=== PATIENT | female | born 1975 | race African-American/Black ===

== ENCOUNTER 2017-10-03 13:05 | Emergency (ER) | payer SELFPAY ==
[~2017-10-03] VITALS: Ht 160 cm; Wt 81.6 kg
[~2017-10-03 13:05] MED LIST: FLUO10CA13 PO; ONDA4TAB10 SL; OXYC-323 PO
[2017-10-03 13:20] VITALS: BP 151/98
[2017-10-03 13:56] LABS: BILIRUBIN,URINE NEG (NEG); CLARITY,URINE HAZY; COLOR,URINE AMBER; GLUCOSE,URINE NEG (NEG)
[2017-10-03 13:57] LABS: BACTERIA,URINE FEW /HPF (0-FEW); NITRITE,URINE NEG (NEG); SQUAMOUS EPITHELIAL CELL,UR MANY /LPF; TRICHOMONAS,URINE PRESENT; UROBILINOGEN,URINE 1 mg/dL (0.2 mg/dL)
[2017-10-03 14:01] LABS: AMPHETAMINE/METHAMPHETAMINE NEG (NEG); BARBITURATES NEG (NEG); BENZODIAZEPINES NEG (NEG); CANNABINOIDS POS (NEG); COCAINE POS (NEG); METHADONE NEG (NEG); OPIATES NEG (NEG); PHENCYCLIDINE NEG (NEG)
[2017-10-03 14:04] LABS: BASO % 1 % (0-3); EOS # 0.1 x10^3/uL (0.0-0.7); EOS % 1 % (0-3); HEMATOCRIT 42.8 % (36.0-47.0); HEMOGLOBIN 14.6 g/dL (12.0-15.5); LYMPH # 2.9 x10^3/uL (1.0-4.8); LYMPH % 39 % (24-48); MEAN CORPUSCULAR HEMOGLOBIN 32 pg (25-35); MEAN CORPUSCULAR HGB CONC 34 g/dL (31-37); MEAN CORPUSCULAR VOLUME 94 fL (79-100); MONO # 0.5 x10^3/uL (0.0-1.1); MONO % 7 % (0-9); NEUT # 3.9 x10^3uL (1.8-7.7); NEUT % 52 % (31-73); PLATELET COUNT 230 x10^3/uL (140-400); RED BLOOD COUNT 4.53 x10^6/uL (3.50-5.40); RED CELL DISTRIBUTION WIDTH 12.9 % (11.5-14.5); WHITE BLOOD COUNT 7.5 x10^3/uL (4.0-11.0)
[2017-10-03 14:10] LABS: PREG TEST PT QUAL NEGATIVE (NEG)
[2017-10-03 14:14] LABS: ALBUMIN 3.8 g/dL (3.4-5.0); CREATININE 0.8 mg/dL (0.6-1.0); GFR 94.3; MAGNESIUM 1.9 mg/dL (1.8-2.4); POTASSIUM 3.5 mmol/L (3.5-5.1); TOTAL BILIRUBIN 1.1 mg/dL (0.2-1.0); TOTAL PROTEIN 7.8 g/dL (6.4-8.2)
--- NOTE | 2017-10-03 14:35 | PHYS DOC ---
Past History Past Medical History: Anxiety, Depression Past Surgical History: Cholecystectomy, , Hysterectomy Smoking: Cigarettes, Less than 1pk/day Alcohol Use: Occasionally Drug Use: Marijuana Adult General Chief Complaint Chief Complaint: SUICDAL IDEATION HPI HPI 42-year-old female patient complaining of vaginal discharge and urinary frequency for the last one week with suprapubic discomfort feeling with radiation of pain to her back. Patient states she did not have new sexual partner and denies concern for STD. Patient is postmenopausal. Patient rated her pain as moderate. Patient states she had history of depression and since this morning she feels she" doesn't want to be there anymore"and wants to be but does not have any suicidal plan. Patient denies history of suicidal attempt or ideation previously or mental hospitalization, hallucination and homicidal ideation. Patient admitted to use daily marijuana and used cocaine 5 days ago. Patient smokes cigarettes. Patient denies fever and chills, nausea and vomiting, focal neuro deficit, chest pain and shortness of breath. Review of Systems Review of Systems Constitutional: Denies fever or chills [] Eyes: Denies change in visual acuity, redness, or eye pain [] HENT: Denies nasal congestion or sore throat [] Respiratory: Denies cough or shortness of breath [] Cardiovascular: No additional information not addressed in HPI [] GI: Reports abdominal pain, nausea, denies vomiting, bloody stools or diarrhea [ ] : Denies dysuria or hematuria , reports vaginal discharge and urinary frequency[] Musculoskeletal: Denies back pain or joint pain [] Integument: Denies rash or skin lesions [] Neurologic: Denies headache, focal weakness or sensory changes [] Endocrine: Denies polydipsia [] All other systems were reviewed and found to be within normal limits, except as documented in this note. Allergies Allergies Allergies Coded Allergies Type Severity Reaction Last Updated Verified hydromorphone Allergy Intermediate nausea 10/06/16 Yes acetaminophen Allergy Unknown 03/02/14 Yes hydrocodone Allergy Unknown 03/02/14 Yes Physical Exam Physical Exam Constitutional: Well developed, well nourished,mild distress, non-toxic appearance, depressed and tearful [] HENT: Normocephalic, atraumatic, bilateral external ears normal, oropharynx moist, no oral exudates, nose normal. [] Eyes: PERRLA, EOMI, conjunctiva normal, no discharge. [] Neck: Normal range of motion, no tenderness, supple, no stridor. [] Cardiovascular:Heart rate regular rhythm, no murmur [] Lungs & Thorax: Bilateral breath sounds clear to auscultation [] Abdomen: Bowel sounds normal, soft, no tenderness, no masses, no pulsatile masses. [] Skin: Warm, dry, no erythema, no rash. [] Back: No tenderness, no CVA tenderness. [] Extremities: No tenderness, no cyanosis, no clubbing, ROM intact, no edema. [] Neurologic: Alert and oriented X 3, normal motor function, normal sensory function, no focal deficits noted. [] Psychologic: Affect normal, judgement normal, mood normal. Patient was not able to tolerate vaginal exam and refused vaginal exam. [] Current Patient Data Lab Results Laboratory Tests Test 10/03/17 13:25 10/03/17 13:44 Urine Collection Type Unknown Urine Color Tanya Urine Clarity Hazy Urine pH 5.5 Urine Specific [place] >=1.030 Urine Protein 100 mg/dl (NEG-TRACE) Urine Glucose (UA) Neg mg/dL (NEG) Urine Ketones (Stick) Trace mg/dL (NEG) Urine Blood Mod (NEG) Urine Nitrite Neg (NEG) Urine Bilirubin Neg (NEG) Urine Urobilinogen Dipstick 1 mg/dL (0.2 mg/dL) Urine Leukocyte Esterase Small (NEG) Urine RBC 3-5 /HPF (0-2) Urine WBC 5-10 /HPF (0-4) Urine Squamous Epithelial Cells Many /LPF Urine Bacteria Few /HPF (0-FEW) Urine Mucus Mod /LPF Urine Trichomonas Present Urine Opiates Screen Neg (NEG) Urine Methadone Screen Neg (NEG) Urine Barbiturates Neg (NEG) Urine Phencyclidine Screen Neg (NEG) Urine Amphetamine/Methamphetamine Neg (NEG) Urine Benzodiazepines Screen Neg (NEG) Urine Cocaine Screen Pos (NEG) Urine Cannabinoids Screen Pos (NEG) Urine Ethyl Alcohol Neg (NEG) White Blood Count 7.5 x10^3/uL (4.0-11.0) Red Blood Count 4.53 x10^6/uL (3.50-5.40) Hemoglobin 14.6 g/dL (12.0-15.5) Hematocrit 42.8 % (36.0-47.0) Mean Corpuscular Volume 94 fL (79-100) Mean Corpuscular Hemoglobin 32 pg (25-35) Mean Corpuscular Hemoglobin Concent 34 g/dL (31-37) Red Cell Distribution Width 12.9 % (11.5-14.5) Platelet Count 230 x10^3/uL (140-400) Neutrophils (%) (Auto) 52 % (31-73) Lymphocytes (%) (Auto) 39 % (24-48) Monocytes (%) (Auto) 7 % (0-9) Eosinophils (%) (Auto) 1 % (0-3) Basophils (%) (Auto) 1 % (0-3) Neutrophils # (Auto) 3.9 x10^3uL (1.8-7.7) Lymphocytes # (Auto) 2.9 x10^3/uL (1.0-4.8) Monocytes # (Auto) 0.5 x10^3/uL (0.0-1.1) Eosinophils # (Auto) 0.1 x10^3/uL (0.0-0.7) Basophils # (Auto) 0.0 x10^3/uL (0.0-0.2) Sodium Level 143 mmol/L (136-145) Potassium Level 3.5 mmol/L (3.5-5.1) Chloride Level 107 mmol/L (98-107) Carbon Dioxide Level 24 mmol/L (21-32) Anion Gap 12 (6-14) Blood Urea Nitrogen 5 mg/dL (7-20) L Creatinine 0.8 mg/dL (0.6-1.0) Estimated GFR (Cockcroft-Gault) 94.3 BUN/Creatinine Ratio 6 (6-20) Glucose Level 92 mg/dL (70-99) Calcium Level 9.0 mg/dL (8.5-10.1) Magnesium Level 1.9 mg/dL (1.8-2.4) Total Bilirubin 1.1 mg/dL (0.2-1.0) H Aspartate Amino Transferase (AST) 13 U/L (15-37) L Alanine Aminotransferase (ALT) 14 U/L (14-59) Alkaline Phosphatase 58 U/L (46-116) Total Protein 7.8 g/dL (6.4-8.2) Albumin 3.8 g/dL (3.4-5.0) Albumin/Globulin Ratio 1.0 (1.0-1.7) Lipase 93 U/L (73-393) Serum Test, Qualitative Negative (NEG) EKG EKG [] Radiology/Procedures Radiology/Procedures [] Course & Med Decision Making Course & Med Decision Making Pertinent Labs studies reviewed. (See chart for details) Evaluation of patient in ER showed 42-year-old female patient with complaining of urinary frequency and pelvic pain and depression and suicidal thought without plan. Patient was not able to tolerate vaginal exam and refused vaginal exam. Patient did not have external vaginal discharge or abnormality. Patient is not sexually active for a long time. Labs showed UTI and positive cocaine and marijuana in UDS. Patient was evaluated by at 1530 and he determined that patient is not harm to herself and can discharge and follow as outpatient with guidance Center. Patient feels comfortable to go home and follow as outpatient. Dragon Disclaimer Dragon Disclaimer This electronic medical record was generated, in whole or in part, using a voice recognition dictation system. Departure Departure: Impression: Primary Impression: Urinary tract infection Additional Impressions: Depressed Suicidal thoughts Pelvic pain Cocaine abuse Marijuana abuse Tobacco abuse Tobacco abuse counseling Disposition: HOME, SELF-CARE (At 1647) Referrals: PCP,NO (PCP) Patient Instructions: Depression, Adult, Pelvic Pain, Female, Substance Abuse- Brief, Urinary Tract Infection Additional Instructions: Follow-up with guidance Center as instructed by psychiatric doctor Quit smoking and abusing drugs Scripts Ciprofloxacin Hcl (CIPRO) 250 Mg Tablet 1 TAB PO BID, #14 TAB Prov: CAROLYN ONTIVEROS MD 10/03/17 Problem Qualifiers CAROLYN ONTIVEROS MD Oct 03, 2017 14:35
[2017-10-03] MEDS ORDERED: CIPR250T30 PO (16:50)
== END 2017-10-03 17:05 | disposition home or self-care (01) ==
LOC: ER 13:05
DX: N39.0 Urinary tract infection, site not specified (principal); R45.851 Suicidal ideations; F32.9 Major depressive disorder, single episode, unspecified; F14.10 Cocaine abuse, uncomplicated; F12.10 Cannabis abuse, uncomplicated; F41.9 Anxiety disorder, unspecified; F17.210 Nicotine dependence, cigarettes, uncomplicated; Z88.5 Allergy status to narcotic agent; Z88.6 Allergy status to analgesic agent
CPT/HCPCS: 36415; 80053; 80307; 81001; 83690; 83735; 84703; 85025; 87086; 99284; G0479

== ENCOUNTER 2020-01-07 15:01 | Emergency (ER) | payer OTHER ==
[~2020-01-07] VITALS: Ht 160 cm; Wt 75.7 kg
[2020-01-07 15:01] VITALS: BP 142/110
[~2020-01-07 15:01] MED LIST changes: +CIPR250T30 PO; -OXYC-323 PO; +OXYC1TAB15 PO
[2020-01-07] MEDS ORDERED: IV NORMAL SALINE 1,000ML 1,000 ML IV SCH (15:29)
[2020-01-07 15:41] LABS: BASO % 1 % (0-3); EOS % 1 % (0-3); HEMATOCRIT 41.6 % (36.0-47.0); HEMOGLOBIN 13.9 g/dL (12.0-15.5); LYMPH # 2.2 x10^3/uL (1.0-4.8); LYMPH % 33 % (24-48); MEAN CORPUSCULAR HEMOGLOBIN 32 pg (25-35); MEAN CORPUSCULAR HGB CONC 33 g/dL (31-37); MEAN CORPUSCULAR VOLUME 97 fL (79-100); MONO # 0.5 x10^3/uL (0.0-1.1); MONO % 7 % (0-9); NEUT % 59 % (31-73); PLATELET COUNT 245 x10^3/uL (140-400); RED BLOOD COUNT 4.31 x10^6/uL (3.50-5.40); RED CELL DISTRIBUTION WIDTH 12.8 % (11.5-14.5); WHITE BLOOD COUNT 6.8 x10^3/uL (4.0-11.0)
[2020-01-07] MEDS ORDERED: ASPIRIN 81 MG TAB.CHEW PO ONE (15:45)
[2020-01-07 15:48] LABS: CALCIUM 9.1 mg/dL (8.5-10.1); CREATININE 0.8 mg/dL (0.6-1.0); GFR 93.4
--- NOTE | 2020-01-07 15:49 | RAD ---
EXAM: AP View of the chest DATE: 01/07/2020 3:29 PM INDICATION: Chest pain COMPARISON: No Prior FINDINGS: The heart is not enlarged. Mediastinal and hilar contours are normal. No focal parenchymal airspace opacity. No pleural effusion or pneumothorax. IMPRESSION: 1. No radiographic evidence for acute cardiopulmonary process. Electronically signed by: Chago Romero MD (01/07/2020 3:46 PM) [id number]
[2020-01-07 16:00] LABS: ALBUMIN 4.1 g/dL (3.4-5.0); ALBUMIN/GLOBULIN RATIO 1.2 (1.0-1.7); MAGNESIUM 1.8 mg/dL (1.8-2.4); TOTAL BILIRUBIN 1.1 mg/dL (0.2-1.0); TOTAL PROTEIN 7.5 g/dL (6.4-8.2)
--- NOTE | 2020-01-07 16:12 | PHYS DOC ---
Past History Past Medical History: Anxiety, Depression Past Surgical History: Cholecystectomy, , Hysterectomy Smoking: Cigarettes, Less than 1pk/day Alcohol Use: Occasionally Drug Use: Cocaine, Marijuana Adult General Chief Complaint Chief Complaint: MULTIPLE COMPLAINTS HPI HPI Patient is a 44-year-old female who presents with complaint of pain on the right side of her back behind her shoulder blade. She describes pain as sharp and stabbing in nature and states that pain is worsened with deep breathing and with movements. She denies any cough or fever. Patient denies any recent injuries. She rates pain as moderate. She states that nothing is improving her pain.[] Review of Systems Review of Systems Constitutional: Denies fever or chills [] Respiratory: Denies cough or shortness of breath [] Cardiovascular: No additional information not addressed in HPI [] GI: Denies abdominal pain, nausea, vomiting or diarrhea [] Musculoskeletal: Complains of right sided mid to upper back pain [] Integument: Denies rash or skin lesions [] All other systems were reviewed and found to be within normal limits, except as documented in this note. Current Medications Current Medications Current Medications Medications (Trade) Dose Ordered Sig/Rox Start Time Stop Time Status Last Admin Dose Admin Aspirin (Children'S Aspirin) 324 mg 1X ONCE 01/07/20 15:45 01/07/20 15:46 DC 01/07/20 15:45 324 MG Sodium Chloride 1,000 ml @ 1,000 mls/hr Q1H 01/07/20 15:29 01/07/20 16:28 01/07/20 15:29 1,000 MLS/HR Allergies Allergies Allergies Coded Allergies Type Severity Reaction Last Updated Verified hydromorphone Allergy Intermediate nausea 10/06/16 Yes acetaminophen Allergy Unknown 03/02/14 Yes hydrocodone Allergy Unknown 03/02/14 Yes Physical Exam Physical Exam Constitutional: Well developed, well nourished, no acute distress, non-toxic appearance. [] HENT: Normocephalic, atraumatic, bilateral external ears normal, oropharynx moist, no oral exudates, nose normal. [] Eyes: PERRLA, EOMI, conjunctiva normal, no discharge. [] Neck: Normal range of motion, no tenderness, supple, no stridor. [] Cardiovascular:Heart rate regular rhythm, no murmur [] Lungs & Thorax: Bilateral breath sounds clear to auscultation [] Abdomen: Bowel sounds normal, soft, no tenderness, no masses, no pulsatile masses. [] Skin: Warm, dry, no erythema, no rash. [] Extremities: No tenderness, no cyanosis, no clubbing, ROM intact. [] Neurologic: Alert and oriented X 3, no focal deficits noted. [] Current Patient Data Lab Results Laboratory Tests Test 01/07/20 15:15 White Blood Count 6.8 x10^3/uL (4.0-11.0) Red Blood Count 4.31 x10^6/uL (3.50-5.40) Hemoglobin 13.9 g/dL (12.0-15.5) Hematocrit 41.6 % (36.0-47.0) Mean Corpuscular Volume 97 fL (79-100) Mean Corpuscular Hemoglobin 32 pg (25-35) Mean Corpuscular Hemoglobin Concent 33 g/dL (31-37) Red Cell Distribution Width 12.8 % (11.5-14.5) Platelet Count 245 x10^3/uL (140-400) Neutrophils (%) (Auto) 59 % (31-73) Lymphocytes (%) (Auto) 33 % (24-48) Monocytes (%) (Auto) 7 % (0-9) Eosinophils (%) (Auto) 1 % (0-3) Basophils (%) (Auto) 1 % (0-3) Neutrophils # (Auto) 4.0 x10^3uL (1.8-7.7) Lymphocytes # (Auto) 2.2 x10^3/uL (1.0-4.8) Monocytes # (Auto) 0.5 x10^3/uL (0.0-1.1) Eosinophils # (Auto) 0.0 x10^3/uL (0.0-0.7) Basophils # (Auto) 0.0 x10^3/uL (0.0-0.2) Sodium Level 140 mmol/L (136-145) Potassium Level 3.0 mmol/L (3.5-5.1) L Chloride Level 103 mmol/L (98-107) Carbon Dioxide Level 23 mmol/L (21-32) Anion Gap 14 (6-14) Blood Urea Nitrogen 8 mg/dL (7-20) Creatinine 0.8 mg/dL (0.6-1.0) Estimated GFR (Cockcroft-Gault) 93.4 BUN/Creatinine Ratio 10 (6-20) Glucose Level 96 mg/dL (70-99) Calcium Level 9.1 mg/dL (8.5-10.1) Magnesium Level Pending Total Bilirubin Pending Aspartate Amino Transferase (AST) Pending Alanine Aminotransferase (ALT) Pending Alkaline Phosphatase Pending Troponin I Quantitative < 0.017 ng/mL (0-0.055) NV-Jvm-N-Type Natriuretic Peptide Pending Total Protein Pending Albumin Pending Albumin/Globulin Ratio Pending EKG EKG [] Radiology/Procedures Radiology/Procedures [] Impressions: PROCEDURE: PORTABLE CHEST 1V EXAM: AP View of the chest DATE: 01/07/2020 3:29 PM INDICATION: Chest pain COMPARISON: No Prior FINDINGS: The heart is not enlarged. Mediastinal and hilar contours are normal. No focal parenchymal airspace opacity. No pleural effusion or pneumothorax. IMPRESSION: 1. No radiographic evidence for acute cardiopulmonary process. Electronically signed by: Chago Romero MD (01/07/2020 3:46 PM) [id number] Course & Med Decision Making Course & Med Decision Making Pertinent Labs and Imaging studies reviewed. (See chart for details) [] Dragon Disclaimer Dragon Disclaimer This electronic medical record was generated, in whole or in part, using a voice recognition dictation system. Departure Departure: Impression: Primary Impression: Subscapular bursitis Additional Impression: Hypokalemia Disposition: 01 HOME, SELF-CARE Condition: STABLE Referrals: PCP,NO (PCP) Patient Instructions: Bursitis, Hypokalemia Scripts Tramadol Hcl (TRAMADOL HCL) 50 Mg Tablet 50 MG PO PRN Q6HRS PRN for PAIN, #12 TAB Prov: DAVE MARSHALL Jr. DO 01/07/20 Methylprednisolone (MEDROL) 4 Mg Tab.ds.pk 1 PKG PO UD for inflammation, #1 PKG Prov: DAVE MARSHALL Jr. DO 01/07/20 Diclofenac Sodium (DICLOFENAC SODIUM) 50 Mg Tablet.dr 1 TAB PO BID PRN for PAIN, #20 TAB Prov: DAVE MARSHALL Jr. DO 01/07/20 Problem Qualifiers DAVE MARSHALL Jr. DO Jan 07, 2020 16:11
[2020-01-07] MEDS ORDERED: POTASSIUM CHLORIDE 20 MEQ TABLET.ER. PO ONE (16:15)
[2020-01-07] MEDS ORDERED: TRAM50TA PO (16:51)
[2020-01-07] MEDS ORDERED: DICL50TA4 PO (16:51)
[2020-01-07] MEDS ORDERED: METH4TAB2 PO (16:51)
--- NOTE | 2020-01-08 00:54 | EKG ---
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
== END 2020-01-07 17:12 | disposition home or self-care (01) ==
LOC: ER 15:01
DX: M75.51 Bursitis of right shoulder (principal); E87.6 Hypokalemia; F17.210 Nicotine dependence, cigarettes, uncomplicated; Z90.49 Acquired absence of other specified parts of digestive tract; Z90.710 Acquired absence of both cervix and uterus; Z98.890 Other specified postprocedural states; Z88.5 Allergy status to narcotic agent; Z88.6 Allergy status to analgesic agent
CPT/HCPCS: 36415; 71045; 80053; 83735; 83880; 84484; 85025; 85379; 93005; 99285; J7030

== ENCOUNTER 2020-02-01 08:42 | Emergency (ER) | payer OTHER ==
[~2020-02-01] VITALS: Ht 160 cm; Wt 75.2 kg
[~2020-02-01 08:42] MED LIST changes: +DICL50TA4 PO; +METH4TAB2 PO; +TRAM50TA PO
--- NOTE | 2020-02-01 08:48 | PHYS DOC ---
Past History Past Medical History: Anxiety, Depression, Hypertension Past Surgical History: Cholecystectomy, , Hysterectomy Smoking: Cigarettes, Less than 1pk/day Alcohol Use: Occasionally Drug Use: Cocaine, Marijuana General Adult EDM: Chief Complaint: BACK PAIN OR INJURY HPI: HPI: 44-year-old female with significant history of hypertension, who presents for evaluation of acutely worsening right periscapular pain described as sharp and throbbing. She was seen about one month ago for similar symptoms. She was diagnosed with subscapular bursitis and hypokalemia. She reports acute worsening of pain recently. Aggravated with some movement of the right upper extremity. Also reports pain is worsened with deep inhalation. No prior history of thromboembolic disease. No other aggravating or alleviating factors. Prior cholecystectomy. Review of Systems: Review of Systems: General: No fevers, chills. Eyes: No blurred vision, diplopia. ENT: No nasal congestion, sore throat. CV: No chest pain, edema. Resp: No shortness of breath, cough. GI: No abdominal pain, nausea, vomiting. : No dysuria, hematuria. Neuro: No headache, dizziness, weakness. MSK: Reports right periscapular pain. Skin: No acute rash, lesion. Heart Score: Risk Factors: Risk Factors: DM, Current or recent (<one month) smoker, HTN, HLP, family history of CAD, obesity. Risk Scores: Score 0 - 3: 2.5% MACE over next 6 weeks - Discharge Home Score 4 - 6: 20.3% MACE over next 6 weeks - Admit for Clinical Observation Score 7 - 10: 72.7% MACE over next 6 weeks - Early Invasive Strategies Allergies: Allergies: Allergies Coded Allergies Type Severity Reaction Last Updated Verified hydromorphone Allergy Intermediate nausea 10/06/16 Yes acetaminophen Allergy Unknown 03/02/14 Yes hydrocodone Allergy Unknown 03/02/14 Yes Physical Exam: PE: Gen: NAD. Head: NC/AT Eyes: No scleral icterus. No conjunctival injection. ENT: MMM. Posterior OP clear. Neck: Supple. NT. CV: RRR. Peripheral pulses intact. Resp: CTAB. Abd: Soft. NT. ND. No flank percussion tenderness. MSK: No peripheral cyanosis. No edema. Some minimal tenderness to the right parascapular region without overlying skin changes, fluctuance, or induration. No midline spinal tenderness. Neuro: A&Ox3. Strength & sensation grossly intact throughout. Skin: Warm. Dry. Psych: Tearful. EKG: EKG: EKG performed at 0911. Sinus rhythm. Heart rate 63. Normal intervals. No acute STT changes. No STEMI. Interpreted by me. Radiology/Procedures: Radiology/Procedures: PORTABLE CHEST 1V History: Chest pain Comparison: January 07, 2020 Findings: Single view of the chest is submitted. There is no infiltrate, pneumothorax, or effusion. The pericardial cardiac silhouette is probably unchanged allowing for differences in technique. Impression: 1. There is no convincing radiographic evidence of acute cardiopulmonary disease. Electronically signed by: Aayz Gutierrez MD (02/01/2020 9:32 AM) [id number] Course & Med Decision Making: Course & Med Decision Making In summary, 44-year-old female who presents with acute worsening of right periscapular pain, worsened with deep inhalation. No anterior chest pain or dyspnea. Presenting vital signs are unremarkable. No hypoxia. EKG without acute injury pattern. Laboratory is otherwise unrevealing as well. Troponin negative. D-dimer negative in an otherwise low risk patient for PE. She otherwise remains well-appearing and nontoxic. Suspect muscular or nerve related pain. She was discharged home with empiric treatment with Flexeril and lidocaine patch. Outpatient PMD follow-up. Recommended possible outpatient imaging of the thoracic spine for possible thoracic radiculopathy. Return precautions given. Alysia Disclaimer: Alysia Disclaimer: This electronic medical record was generated, in whole or in part, using a voice recognition dictation system. Departure Departure: Impression: Primary Impression: Periscapular pain Disposition: 01 HOME, SELF-CARE Condition: STABLE Referrals: PCP,NO (PCP) Scripts Lidocaine (Lidocaine PATCH ) 1 Each Adh..patch 1 EACH TP DAILY for FOR LOCAL PAIN, #10 PATCH REMOVE AFTER 12 HOURS Prov: LE,REGINO H DO 02/01/20 Cyclobenzaprine Hcl (CYCLOBENZAPRINE HCL) 10 Mg Tablet 1 TAB PO TID for muscular pain, #30 TAB Prov: LE,REGINO H DO 02/01/20 LE,REGINO H DO Feb 01, 2020 08:48
[2020-02-01] MEDS ORDERED: IV NORMAL SALINE 1,000ML 1,000 ML IV ONE (09:00)
--- NOTE | 2020-02-01 09:18 | EKG ---
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
[2020-02-01 09:19] LABS: BASO # 0.1 x10^3/uL (0.0-0.2); BASO % 1 % (0-3); EOS # 0.1 x10^3/uL (0.0-0.7); EOS % 2 % (0-3); HEMATOCRIT 42.4 % (36.0-47.0); HEMOGLOBIN 14.1 g/dL (12.0-15.5); LYMPH # 2.6 x10^3/uL (1.0-4.8); LYMPH % 39 % (24-48); MEAN CORPUSCULAR HEMOGLOBIN 32 pg (25-35); MEAN CORPUSCULAR HGB CONC 33 g/dL (31-37); MEAN CORPUSCULAR VOLUME 96 fL (79-100); MONO # 0.5 x10^3/uL (0.0-1.1); MONO % 7 % (0-9); NEUT # 3.5 x10^3uL (1.8-7.7); NEUT % 52 % (31-73); PLATELET COUNT 274 x10^3/uL (140-400); RED BLOOD COUNT 4.43 x10^6/uL (3.50-5.40); RED CELL DISTRIBUTION WIDTH 12.9 % (11.5-14.5); WHITE BLOOD COUNT 6.8 x10^3/uL (4.0-11.0)
[2020-02-01 09:26] LABS: CALCIUM 8.9 mg/dL (8.5-10.1); CREATININE 0.8 mg/dL (0.6-1.0); GFR 93.4; POTASSIUM 3.9 mmol/L (3.5-5.1)
--- NOTE | 2020-02-01 09:34 | RAD ---
PORTABLE CHEST 1V History: Chest pain Comparison: January 07, 2020 Findings: Single view of the chest is submitted. There is no infiltrate, pneumothorax, or effusion. The pericardial cardiac silhouette is probably unchanged allowing for differences in technique. Impression: 1. There is no convincing radiographic evidence of acute cardiopulmonary disease. Electronically signed by: Ayaz Gutierrez MD (02/01/2020 9:32 AM) [id number]
[2020-02-01 09:37] LABS: ALBUMIN 3.9 g/dL (3.4-5.0); ALBUMIN/GLOBULIN RATIO 1.1 (1.0-1.7); MAGNESIUM 1.9 mg/dL (1.8-2.4); TOTAL BILIRUBIN 1.2 mg/dL (0.2-1.0); TOTAL PROTEIN 7.6 g/dL (6.4-8.2)
[2020-02-01] MEDS ORDERED: LIDO700A21 TP (09:53)
[2020-02-01] MEDS ORDERED: CYCL-331 PO (09:53)
[2020-02-01 10:19] VITALS: BP 141/92
== END 2020-02-01 10:30 | disposition home or self-care (01) ==
LOC: ER 08:42
DX: M25.511 Pain in right shoulder (principal); I10 Essential (primary) hypertension; F17.210 Nicotine dependence, cigarettes, uncomplicated; Z88.5 Allergy status to narcotic agent; Z88.6 Allergy status to analgesic agent
CPT/HCPCS: 36415; 71045; 80053; 83690; 83735; 84484; 85025; 85379; 93005; 96374; 99285; J3010; J7030

== ENCOUNTER 2020-08-28 00:06 | Emergency (ER) | payer SELFPAY ==
[~2020-08-28] VITALS: Ht 160 cm; Wt 75.2 kg
[~2020-08-28 00:06] MED LIST changes: +CYCL-331 PO; +LIDO700A21 TP
--- NOTE | 2020-08-28 01:25 | PHYS DOC ---
Past History Past Medical History: Anxiety, Depression, Hypertension Past Surgical History: Cholecystectomy, , Hysterectomy Smoking: Cigarettes, Less than 1pk/day Alcohol Use: None Drug Use: Cocaine, Marijuana General Adult EDM: Chief Complaint: SYNCOPE HPI: HPI: ".. I don' t know what happened... we were smoking some weed.. it tasted nela funny... There is some strange shit in the weed..it really fucked me up..... they said I passed out.. " Pt. " We were smoking some week ... but she started acting weird... Maybe there is something in the marijuana.... But she cannot got dizzy and fell hit her head on car ....she nela of fell forwards and hit her forehead... Then fell backwards striking her head.... on the ground.. .. We load her up and brought her here.. " Sister [phone] Patient is a 45 year old FEMALE who presents with hx of syncope and head injury after smoking some"funny tasting weed" ( Marijuana). Patient does give a history of previous TIA type presentations x 3 and she is worked up [facility]. Patient currently complaining of contusion of posterior scalp. There is some mild upper neck tenderness. Patient complaining of headache. Patient denies any history of immunosuppression. Patient does smoke. Does have a history of previous polysubstance abuse. Hx. of hypertension. Patient denies any recent fever or chills. Patient denies any recent travel outside the [place] area. Patient denies any chest pain, dyspnea or dysrhythmia. Review of Systems: Review of Systems: Constitutional: Denies fever or chills Eyes: Denies change in visual acuity HENT: Complains of head trauma and contusion to posterior scalp, some upper neck tenderness Respiratory: Denies cough or shortness of breath Cardiovascular: Denies chest pain or edema GI: Denies abdominal pain, nausea, vomiting, bloody stools or diarrhea : Denies dysuria Musculoskeletal: Denies back pain or joint pain Integument: Denies rash Neurologic: Denies headache, focal weakness or sensory changes Endocrine: Denies polyuria or polydipsia Lymphatic: Denies swollen glands Psychiatric: Denies depression or anxiety Family History: Family History: Noncontributory to presentation Current Medications: Current Meds: See nursing for home meds Allergies: Allergies: Allergies Coded Allergies Type Severity Reaction Last Updated Verified hydrocodone Allergy Intermediate 08/28/20 Yes hydromorphone Allergy Intermediate nausea 08/28/20 Yes acetaminophen Allergy Unknown 08/28/20 Yes Physical Exam: PE: Constitutional: , complains of headache, appears to be under the influence of drugs HENT: Normocephalic, contusion posterior scalp, bilateral external ears normal, oropharynx moist, no oral exudates, nose normal. TMs clear Eyes: PERRLA, EOMI, conjunctiva normal, no discharge. Fundus benign. Some nicking Neck: Normal range of motion, upper neck tenderness, supple, no stridor. [] Cardiovascular:Heart rate regular rhythm, no murmur [] Lungs & Thorax: Bilateral breath sounds clear to auscultation [] Abdomen: Bowel sounds normal, soft, no tenderness, no masses, no pulsatile masses. Old surgery scars. Mild distention Skin: Warm, dry, no erythema, no rash. [] Back: No tenderness, no CVA tenderness. [] Extremities: No tenderness, no cyanosis, no clubbing, ROM intact, no edema. [] Neurologic: Alert and oriented X 3, moves all extremities on request, has distal sensory function, no focal deficits noted. [] DTRs +2 patellar and brachial. Did have bilateral 3 beat nystagmus bilaterally. Slightly wide gait. Rest Room Attendant equal Psychologic: Affect anxious, judgement normal, mood normal. [] Current Patient Data: Vital Signs: Vital Signs Date Time Temp Pulse Resp B/P (MAP) Pulse Ox O2 Delivery O2 Flow Rate FiO2 08/28/20 01:00 98.5 63 18 119/72 (88) 99 EKG: EKG: My interpretation EKG shows sinus bradycardia 52 bpm. Does have some nonspecific contour changes anterior septal areas however no findings acute STEMI of contralateral changes [] Radiology/Procedures: Radiology/Procedures: [[address] [address] IMAGING REPORT Signed PATIENT: SELVIN YEBOAH ACCOUNT: [id number] : 1975 LOCATION: ER AGE: 45 SEX: F EXAM STATUS: REG ER ORD. PHYSICIAN: DELON CRAIG MD REASON: syncope, head injury, loc, pain PROCEDURE: CT HEAD AND CERVICAL SPINE WO STUDY: CT head and cervical spine without contrast INDICATION: Syncope. Head injury. Loss of consciousness. Pain. COMPARISON: None. TECHNIQUE: Axial CT imaging through the head and cervical spine without the use of intravenous contrast. Sagittal and coronal reformats were obtained. One or more of the following individualized dose reduction techniques were utilized for this examination: 1. Automated exposure control 2. Adjustment of the mA and/or kV according to patient size 3. Use of iterative reconstruction technique. FINDINGS: CT head: No acute intracranial hemorrhage. Sanchez-white matter differentiation is maintained. No localized mass effect, midline shift or hydrocephalus. No depressed calvarial fracture. Possible mild posterior midline scalp contusion. CT cervical spine: No acute fracture or traumatic malalignment. Uncovertebral joint hypertrophy at several levels in addition to mild discogenic arthrosis. Degenerative remodeling at the atlantodental interface. No severe central canal stenosis is apparent. Osseous neural foraminal stenosis greatest on the left at C4-C5 but no more than mild/moderate. No soft tissue sequela of trauma seen throughout the neck. No apical pneumothorax. The thyroid is somewhat prominent without a large nodule. IMPRESSION: CT head: 1. No acute intracranial abnormality by CT. 2. Suspected mild posterior scalp contusion. No associated depressed calvarial fracture. CT cervical spine: 1. No acute fracture or traumatic malalignment. 2. Scattered degenerative changes greatest at C4-C5. Electronically signed by: AMANDA VILLA MD (08/28/2020 2:48 AM) [id number] DICTATED AND SIGNED BY: AMANDA VILLA MD DATE: 08/28/20 0248 CC: DELON CRAIG MD; PCP,NO ~ ][address] [address] IMAGING REPORT Signed PATIENT: SELVIN YEBOAH ACCOUNT: [id number] : 1975 LOCATION: ER AGE: 45 SEX: F EXAM STATUS: REG ER ORD. PHYSICIAN: DELON CRAIG MD REASON: fall, syncope, dyspnea PROCEDURE: PORTABLE CHEST 1V Study: CR PORTABLE CHEST 1V Indication: Fall. Syncope. Dyspnea. Comparison: 02/01/2020 Findings: Unchanged cardiomediastinal silhouette and oliver. No lobar consolidation, pleural effusion or pneumothorax. Unremarkable osseous structures and visualized upper abdomen. Impression: No acute radiographic abnormality of the chest. No significant change from 02/01/2020. Electronically signed by: AMANDA VILLA MD (08/28/2020 3:11 AM) [id number] DICTATED AND SIGNED BY: AMANDA VILLA MD DATE: 08/28/20310 CC: DELON CRAIG MD; PCP,NO ~ Heart Score: Risk Factors: Risk Factors: DM, Current or recent (<one month) smoker, HTN, HLP, family history of CAD, obesity. Risk Scores: Score 0 - 3: 2.5% MACE over next 6 weeks - Discharge Home Score 4 - 6: 20.3% MACE over next 6 weeks - Admit for Clinical Observation Score 7 - 10: 72.7% MACE over next 6 weeks - Early Invasive Strategies Course & Med Decision Making: Course & Med Decision Making Pertinent Labs and Imaging studies reviewed. (See chart for details) Arrangements for patient's admit and observation with neurology and cardiology consults. Patient decided at 0400 hrs. to not be admitted and demanded discharge home. Encourage patient to stop smoking, cocaine use, and follow-up with primary care. Patient encouraged to return anytime to complete her observation. Patient take Tylenol as needed for pain. May take a baby aspirin per day. Must follow-up. Impression: 1. Syncope 2. Head Injury 3. Hx. Polysubstance Abuse 4. Accelerated Hypertension [] Dragon Disclaimer: Dragon Disclaimer: This electronic medical record was generated, in whole or in part, using a voice recognition dictation system. Departure Departure: Referrals: PCP,ELA (PCP) Thomason Disclaimer This chart was dictated in whole or in part using Voice Recognition software in a busy, high-work load, and often noisy Emergency Department environment. It may contain unintended and wholly unrecognized errors or omissions. DELON CRAIG MD Aug 28, 2020 01:25
[2020-08-28] MEDS ORDERED: IV RINGERS SOLUTION,LACTATED 1,000 ML IV SCH (02:00)
[2020-08-28 02:08] LABS: BASO # 0.1 x10^3/uL (0.0-0.2); BASO % 1 % (0-3); EOS # 0.1 x10^3/uL (0.0-0.7); EOS % 2 % (0-3); HEMATOCRIT 38.5 % (36.0-47.0); HEMOGLOBIN 12.7 g/dL (12.0-15.5); LYMPH # 2.8 x10^3/uL (1.0-4.8); LYMPH % 31 % (24-48); MEAN CORPUSCULAR HEMOGLOBIN 32 pg (25-35); MEAN CORPUSCULAR HGB CONC 33 g/dL (31-37); MEAN CORPUSCULAR VOLUME 96 fL (79-100); MONO # 0.5 x10^3/uL (0.0-1.1); MONO % 6 % (0-9); NEUT # 5.5 x10^3uL (1.8-7.7); NEUT % 60 % (31-73); PLATELET COUNT 257 x10^3/uL (140-400); RED CELL DISTRIBUTION WIDTH 13.2 % (11.5-14.5); WHITE BLOOD COUNT 9.1 x10^3/uL (4.0-11.0)
[2020-08-28 02:10] LABS: CALCIUM 8.8 mg/dL (8.5-10.1); CREATININE 0.9 mg/dL (0.6-1.0); GFR 81.2; POTASSIUM 3.5 mmol/L (3.5-5.1)
[2020-08-28 02:18] LABS: PLT ESTIMATE ADEQUATE (ADEQUATE)
[2020-08-28 02:23] LABS: ALBUMIN 3.4 g/dL (3.4-5.0); DIRECT BILIRUBIN 0.2 mg/dL (0.0-0.2); MAGNESIUM 2.1 mg/dL (1.8-2.4); TOTAL BILIRUBIN 0.9 mg/dL (0.2-1.0); TOTAL PROTEIN 7.3 g/dL (6.4-8.2)
--- NOTE | 2020-08-28 02:51 | RAD ---
STUDY: CT head and cervical spine without contrast INDICATION: Syncope. Head injury. Loss of consciousness. Pain. COMPARISON: None. TECHNIQUE: Axial CT imaging through the head and cervical spine without the use of intravenous contrast. Sagittal and coronal reformats were obtained. One or more of the following individualized dose reduction techniques were utilized for this examination: 1. Automated exposure control 2. Adjustment of the mA and/or kV according to patient size 3. Use of iterative reconstruction technique. FINDINGS: CT head: No acute intracranial hemorrhage. Sanchez-white matter differentiation is maintained. No localized mass effect, midline shift or hydrocephalus. No depressed calvarial fracture. Possible mild posterior midline scalp contusion. CT cervical spine: No acute fracture or traumatic malalignment. Uncovertebral joint hypertrophy at several levels in addition to mild discogenic arthrosis. Degenerative remodeling at the atlantodental interface. No severe central canal stenosis is apparent. Osseous neural foraminal stenosis greatest on the left at C4-C5 but no more than mild/moderate. No soft tissue sequela of trauma seen throughout the neck. No apical pneumothorax. The thyroid is somewhat prominent without a large nodule. IMPRESSION: CT head: 1. No acute intracranial abnormality by CT. 2. Suspected mild posterior scalp contusion. No associated depressed calvarial fracture. CT cervical spine: 1. No acute fracture or traumatic malalignment. 2. Scattered degenerative changes greatest at C4-C5. Electronically signed by: AMANDA VILLA MD (08/28/2020 2:48 AM) [id number]
--- NOTE | 2020-08-28 03:14 | RAD ---
Study: CR PORTABLE CHEST 1V Indication: Fall. Syncope. Dyspnea. Comparison: 02/01/2020 Findings: Unchanged cardiomediastinal silhouette and oliver. No lobar consolidation, pleural effusion or pneumothorax. Unremarkable osseous structures and visualized upper abdomen. Impression: No acute radiographic abnormality of the chest. No significant change from 02/01/2020. Electronically signed by: AMANDA VILLA MD (08/28/2020 3:11 AM) [id number]
[2020-08-28 03:28] LABS: BARBITURATES NEG (NEG); BENZODIAZEPINES NEG (NEG); CANNABINOIDS POS (NEG); COCAINE POS (NEG); METHADONE NEG (NEG); OPIATES NEG (NEG); PHENCYCLIDINE NEG (NEG)
[2020-08-28 03:33] LABS: AMPHETAMINE/METHAMPHETAMINE NEG (NEG)
[2020-08-28 03:38] LABS: COLOR,URINE YELLOW
[2020-08-28 03:39] LABS: BACTERIA,URINE FEW /HPF (0-FEW); BILIRUBIN,URINE NEG (NEG); CLARITY,URINE HAZY; GLUCOSE,URINE NEG (NEG); NITRITE,URINE NEG (NEG); RBC,URINE OCC /HPF (0-2); SQUAMOUS EPITHELIAL CELL,UR FEW /LPF
[2020-08-28] MEDS ORDERED: ONDANSETRON PF 4 MG/2 ML VIAL. IVP PRN (04:00)
[2020-08-28] MEDS ORDERED: ACETAMINOPHEN 325 MG TABLET PO PRN (04:00)
[2020-08-28 04:30] VITALS: BP 144/87
[2020-08-28] MEDS ORDERED: ONDANSETRON PF 4 MG/2 ML VIAL. IVP ONE (04:30)
[2020-08-28] MEDS ORDERED: cloNIDine TTS-2 1 PATCH PATCH TD ONE (04:30)
[2020-08-28] MEDS ORDERED: ASPIRIN CHEWABLE 81 MG TABLET. PO ONE (04:30)
[2020-08-28] MEDS ORDERED: ACETAMINOPHEN 500 MG TABLET PO ONE (04:30)
--- NOTE | 2020-08-28 05:48 | EKG ---
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
[2020-08-28] MEDS ORDERED: IPRATRPIUM/ALBUTEROL 0.5/2.5MG 3 ML NEBU. NEB SCH (08:00)
== END 2020-08-28 04:45 | disposition home or self-care (01) ==
LOC: ER 00:06
DX: S00.03XA Contusion of scalp, initial encounter (principal); R55 Syncope and collapse; F19.10 Other psychoactive substance abuse, uncomplicated; I10 Essential (primary) hypertension; F17.210 Nicotine dependence, cigarettes, uncomplicated; F41.9 Anxiety disorder, unspecified; F32.9 Major depressive disorder, single episode, unspecified; F12.10 Cannabis abuse, uncomplicated; F14.10 Cocaine abuse, uncomplicated; Z88.5 Allergy status to narcotic agent; Z88.6 Allergy status to analgesic agent; W18.30XA Fall on same level, unspecified, initial encounter; Y93.89 Activity, other specified; Y92.89 Other specified places as the place of occurrence of the external cause; Y99.8 Other external cause status
CPT/HCPCS: 36415; 70450; 71045; 72125; 80048; 80076; 80307; 81001; 82550; 83690; 83735; 83880; 84443; 84484; 84702; 85025; 85379; 85610; 85730; 87086; 93005; 96374; 99285; J2405

== ENCOUNTER 2021-02-12 10:24 | Emergency (ER) | payer SELFPAY ==
[~2021-02-12] VITALS: Ht 160 cm; Wt 80.7 kg
[2021-02-12] MEDS ORDERED: ONDA4TAB12 PO (12:20)
[2021-02-12] MEDS ORDERED: HYOS0.1265 SL (12:20)
[2021-02-12] MEDS ORDERED: FAMO-63 PO (12:20)
[2021-02-12 12:35] VITALS: BP 127/86
== END 2021-02-12 12:40 | disposition home or self-care (01) ==
LOC: ER 10:24
DX: R11.2 Nausea with vomiting, unspecified (principal); Z20.822 Contact with and (suspected) exposure to COVID-19; R19.7 Diarrhea, unspecified; R42 Dizziness and giddiness; R51.9 Headache, unspecified; R06.02 Shortness of breath; R07.89 Other chest pain; R50.9 Fever, unspecified; R30.0 Dysuria; Z88.5 Allergy status to narcotic agent
CPT/HCPCS: 36415; 80053; 81001; 83690; 83735; 85025; 87086; 96361; 96374; 96375; 99285; C9803; J1200; J1885; J2405; J2765; J3490; J7030; U0003; U0005